=== PATIENT | female | born 1945 | race Two or more races ===

== ENCOUNTER 2019-01-27 18:49 | Emergency (ER) | payer BC ==
[~2019-01-27] VITALS: Ht 154.9 cm; Wt 75.3 kg
[~2019-01-27 18:49] MED LIST: ALPR0.5T PO; ATEN50TA PO; FOLI1TAB6 PO; LISI10TA6 PO; WARF5TAB PO
[2019-01-27 19:05] VITALS: BP 134/89
[2019-01-27] MEDS ORDERED: methylPREDNISolone SOD SUCC 125 MG/2 ML VL IM ONE (20:15)
[2019-01-27] MEDS ORDERED: cefTRIAXone SOD 1,000 MG VL IM ONE (20:15)
[2019-01-27] MEDS ORDERED: ACETAMINOPHEN IV 1000 MG/100ML (10MG/ML) IV ONE (20:30)
== END 2019-01-27 21:46 | disposition home or self-care (01) ==
LOC: ER 18:55
DX: J06.9 Acute upper respiratory infection, unspecified (principal); H66.93 Otitis media, unspecified, bilateral; I10 Essential (primary) hypertension; Z90.49 Acquired absence of other specified parts of digestive tract; Z95.0 Presence of cardiac pacemaker; Z95.1 Presence of aortocoronary bypass graft; Z88.2 Allergy status to sulfonamides; Z79.899 Other long term (current) drug therapy
CPT/HCPCS: 96372; 99283; J0131; J0696; J2930

== ENCOUNTER 2019-05-14 23:52 | Emergency (ER) | payer BC ==
[~2019-05-14] VITALS: Ht 154.9 cm; Wt 78.0 kg
[2019-05-15] MEDS ORDERED: ONDANSETRON ODT 4 MG TAB PO ONE (00:15)
[2019-05-15 00:49] LABS: Basophils # (auto) 0 uL; Basophils % (auto) 0.6 % (0.0-2.0); Eosinophils # (auto) 0 uL; Eosinophils % (auto) 0.3 % (0.0-7.0); Hemoglobin 13.7 g/dL (12.2-16.2); Lymphocytes # (auto) 1.1 uL; Lymphocytes % (auto) 16.9 % (10.0-50.0); Mean Corpuscular Hgb Conc. 33.4 g/dL (32.0-36.0); Mean Corpuscular Volume 89.8 fL (80.0-100.0); Monocytes # (auto) 0.7 uL; Monocytes % (auto) 11.1 % (0.0-12.0); Neutrophils # (auto) 4.6 uL; Neutrophils % (auto) 71.1 % (37.0-80.0); Platelet Count (auto) 144 10^3/uL (140-450); Red Blood Cells 4.57 10^6/uL (4.0-5.20); Red Cell Distribution Width 15.5 % (11.8-14.3); White Blood Cell 6.5 10^3/uL (4.4-10.8)
[2019-05-15 01:05] LABS: Chloride 105 mmol/L (98-107); INR 2.87 (0.9-1.15); Partial Thromboplastin Time 41.1 sec (23.64-32.05); Potassium 3.7 mmol/L (3.5-5.1); Sodium 138 mmol/L (136-145)
[2019-05-15 01:09] LABS: Alanine Aminotransferase 22 U/L (13-56); Albumin 4.2 g/dL (3.4-5.0); Anion Gap 9 (5-15); Aspartate Aminotransferase 23 U/L (15-37); BUN/Creatinine Ratio 10.6; Blood Urea Nitrogen 10 mg/dL (7-18); Calcium 8.8 mg/dL (8.5-10.1); Carbon Dioxide 24 mmol/L (21-32); GFR African American 75 mL/min; GFR Non-African American 62 mL/min; Glucose 102 mg/dL (74-106)
[2019-05-15 01:12] LABS: Urine Bacteria FEW /hpf (None Seen); Urine Blood 1+ /uL (Negative); Urine Hyaline Cast FEW /lpf (0 - 2); Urine Mucus FEW (None Seen); Urine Specific Gravity 1.026 (1.001-1.035); Urine WBC 7 /hpf (0 - 5)
[2019-05-15 01:18] LABS: Alkaline Phosphatase 103 U/L (45-117); Bilirubin, Total 0.6 mg/dL (0.2-1.0); Total Protein 8.4 g/dL (6.4-8.2)
[2019-05-15 07:01] VITALS: BP 147/51
== END 2019-05-15 08:15 | disposition home or self-care (01) ==
LOC: ER 23:56
DX: R00.2 Palpitations (principal); N39.0 Urinary tract infection, site not specified; I25.10 Atherosclerotic heart disease of native coronary artery without angina pectoris; I05.9 Rheumatic mitral valve disease, unspecified; I10 Essential (primary) hypertension; Z88.0 Allergy status to penicillin; Z88.2 Allergy status to sulfonamides; Z79.01 Long term (current) use of anticoagulants; Z79.899 Other long term (current) drug therapy; Z95.0 Presence of cardiac pacemaker
CPT/HCPCS: 36415; 71045; 80053; 81001; 83880; 84484; 85025; 85610; 85730; 93005; 99284; Q0162

== ENCOUNTER 2021-12-03 16:24 | Inpatient (IN) | payer OTHER, MEDICAID ==
[~2021-12-03] VITALS: Ht 152.4 cm; Wt 61.1 kg
[~2021-12-03 16:24] MED LIST changes: +LISI-716 PO; -LISI10TA6 PO
[2021-12-03 18:55] LABS: Basophils # (auto) 0.1 10 ^3/uL (0-0.2); Basophils % (auto) 0.7 % (0.0-2.0); Eosinophils # (auto) 0 10 ^3/uL (0-0.8); Eosinophils % (auto) 0.2 % (0.0-7.0); Hematocrit 37.4 % (36.0-46.0); Hemoglobin 12.8 g/dL (12.2-16.2); Lymphocytes # (auto) 0.8 10 ^3/uL (0.4-5.4); Lymphocytes % (auto) 11.5 % (10.0-50.0); Mean Corpuscular Hemoglobin 29.3 pg (28.0-32.0); Mean Corpuscular Hgb Conc. 34.3 g/dL (32.0-36.0); Mean Corpuscular Volume 85.4 fL (80.0-100.0); Monocytes # (auto) 0.6 10 ^3/uL (0-1.3); Monocytes % (auto) 8.6 % (0.0-12.0); Neutrophils # (auto) 5.7 10 ^3/uL (1.6-8.6); Nucleated Red Blood Cells % 0.2 %; Red Blood Cells 4.38 10^6/uL (4.0-5.20); Red Cell Distribution Width 15.1 % (11.8-14.3); White Blood Cell 7.3 10^3/uL (4.4-10.8)
[2021-12-03 19:16] LABS: Albumin 3.5 g/dL (3.4-5.0); BUN/Creatinine Ratio 16.5; Calcium 8.9 mg/dL (8.5-10.1); Potassium 4.2 mmol/L (3.5-5.1)
[2021-12-03 19:19] LABS: Bilirubin, Total 0.9 mg/dL (0.2-1.0); Total Protein 7.5 g/dL (6.4-8.2)
[2021-12-03 19:25] LABS: INR 2.62 (0.9-1.15)
[2021-12-03] MEDS ORDERED: ONDANSETRON HCL 4 MG/2 ML VIAL IV ONE (20:00)
[2021-12-03] MEDS ORDERED: HYDROmorphone HCL 2 MG/ML VL IV ONE (20:00)
[2021-12-03] MEDS ORDERED: MORPHINE SULFATE INJECTION 2 MG/ML SYRG IV PRN (22:00)
[2021-12-03] MEDS ORDERED: ACETAMINOPHEN 325 MG TAB PO PRN (22:00)
[2021-12-03] MEDS ORDERED: NITROGLYCERIN 0.4 MG SL TAB SL PRN (22:00)
[2021-12-03] MEDS ORDERED: TEMAZEPAM 15 MG CAP PO PRN (22:00)
[2021-12-03] MEDS: ATENOLOL 25 MG TAB PO SCH (22:30)
[2021-12-03] MEDS: ATORVASTATIN 20 MG TAB PO SCH (22:30)
[2021-12-03 22:32] LABS: Urine Bacteria FEW /hpf (None Seen); Urine Blood TRACE /uL (Negative); Urine Specific Gravity 1.014 (1.001-1.035); Urine WBC 1 /hpf (0 - 5)
[2021-12-04] VITALS (7 sets, daily range): BP systolic 99–128; BP diastolic 48–89
[2021-12-04] MEDS ORDERED: METO25TA93 PO (03:30)
[2021-12-04 06:29] LABS: INR 2.08 (0.9-1.15)
[2021-12-04 06:32] LABS: BUN/Creatinine Ratio 18.2; Potassium 4.4 mmol/L (3.5-5.1)
[2021-12-04 06:40] LABS: Basophils # (auto) 0 10 ^3/uL (0-0.2); Basophils % (auto) 0.8 % (0.0-2.0); Eosinophils # (auto) 0 10 ^3/uL (0-0.8); Hematocrit 35.7 % (36.0-46.0); Hemoglobin 12.2 g/dL (12.2-16.2); Lymphocytes # (auto) 0.6 10 ^3/uL (0.4-5.4); Mean Corpuscular Hemoglobin 29.3 pg (28.0-32.0); Mean Corpuscular Hgb Conc. 34.3 g/dL (32.0-36.0); Mean Corpuscular Volume 85.7 fL (80.0-100.0); Monocytes # (auto) 0.4 10 ^3/uL (0-1.3); Monocytes % (auto) 6.4 % (0.0-12.0); Neutrophils # (auto) 5.4 10 ^3/uL (1.6-8.6); Neutrophils % (auto) 83.8 % (37.0-80.0); Nucleated Red Blood Cells % 0.1 %; Red Blood Cells 4.16 10^6/uL (4.0-5.20); Red Cell Distribution Width 14.8 % (11.8-14.3); White Blood Cell 6.4 10^3/uL (4.4-10.8)
[2021-12-04] MEDS: ASPirin 81 mg TAB PO SCH (10:50)
[2021-12-04] MEDS: FUROSEMIDE 20 MG TAB PO SCH (10:51)
[2021-12-04] MEDS: LOSARTAN POTASSIUM 50 MG TAB PO SCH (10:51)
[2021-12-04] MEDS: ATENOLOL 25 MG TAB PO SCH ×2 (10:52→21:44)
[2021-12-04] MEDS: ONDANSETRON HCL 4 MG/2 ML VIAL IV PRN ×2 (10:52→17:21)
[2021-12-04] MEDS ORDERED: WARFARIN SODIUM 2 MG TAB PO ONE (17:00)
[2021-12-04] MEDS: ATORVASTATIN 20 MG TAB PO SCH (21:43)
[2021-12-05 04:43] VITALS: BP 117/56
[2021-12-05 07:52] LABS: INR 1.94 (0.9-1.15)
[2021-12-05 09:00] VITALS: BP 161/88
[2021-12-05] MEDS: ATENOLOL 25 MG TAB PO SCH (09:22)
[2021-12-05] MEDS: LOSARTAN POTASSIUM 50 MG TAB PO SCH (09:23)
[2021-12-05] MEDS: ASPirin 81 mg TAB PO SCH (09:24)
[2021-12-05] MEDS: FUROSEMIDE 20 MG TAB PO SCH (09:24)
[2021-12-05 11:32] VITALS: BP 123/66
[2021-12-05] MEDS ORDERED: WARFARIN SODIUM 2.5 MG TAB PO ONE (17:00)
== END 2021-12-05 12:03 | disposition home or self-care (01) | DRG 303 ==
LOC: ER 16:24 → EDBD 16:24 → TELE 21:52 → TELE-WESTW 23:59
PROVIDERS: ADMIT Nurse Practitioner; ATTEND Family Medicine
DX: I25.110 Atherosclerotic heart disease of native coronary artery with unstable angina pectoris (principal); D68.9 Coagulation defect, unspecified; F41.9 Anxiety disorder, unspecified; I10 Essential (primary) hypertension; Z80.41 Family history of malignant neoplasm of ovary; Z95.0 Presence of cardiac pacemaker; Z95.2 Presence of prosthetic heart valve; Z88.0 Allergy status to penicillin; Z88.2 Allergy status to sulfonamides; Z88.1 Allergy status to other antibiotic agents; Z91.041 Radiographic dye allergy status; Z90.49 Acquired absence of other specified parts of digestive tract; Z20.822 Contact with and (suspected) exposure to COVID-19
CPT/HCPCS: 36415; 71045; 76705; 80048; 80053; 81001; 83880; 84443; 84484; 85025; 85379; 85610; 85730; 93005; 93306; 96374; 96375; G0378; J2405

== ENCOUNTER → 2024-06-04 | Outpatient (CLI) | payer OTHER, MEDICAID ==
[~2024-06-04] MED LIST changes: +ALBUTEROL SULF 2.5 MG/0.5ML(0.5%) NEB SOLN ONE; -ATEN50TA PO; +FOLI-119 PO; -FOLI1TAB6 PO; -LISI-716 PO; +METO25TA93 PO
== END | disposition home or self-care (01) ==
LOC: RT 14:51
PROVIDERS: ATTEND Internal Medicine Pulmonary Disease
DX: J44.9 Chronic obstructive pulmonary disease, unspecified (principal); R06.00 Dyspnea, unspecified
CPT/HCPCS: 94060; 94727; 94729

== ENCOUNTER → 2024-08-10 | Outpatient (CLI) | payer OTHER, MEDICAID | END | disposition home or self-care (01) | LOC: RT 14:57 | PROVIDERS: ATTEND Internal Medicine Pulmonary Disease | DX: J44.9 Chronic obstructive pulmonary disease, unspecified (principal); R06.09 Other forms of dyspnea | CPT/HCPCS: 94060; 94618; 94727; 94729 ==